=== PATIENT | male | born 1955 | race Caucasian/White ===

== ENCOUNTER 2020-06-07 21:08 | Emergency (ER) | payer OTHER, MEDICAID ==
[~2020-06-07] VITALS: Ht 172.7 cm; Wt 81.6 kg
[2020-06-07 21:20] VITALS: BP 120/72
== END 2020-06-08 11:02 | disposition left against medical advice (07) ==
LOC: ER 21:08 → EDBD 21:08 → ER 06-08 11:02
DX: R41.82 Altered mental status, unspecified (principal); Z53.21 Procedure and treatment not carried out due to patient leaving prior to being seen by health care provider
CPT/HCPCS: 93005